=== PATIENT | male | born 1995 | race Hispanic/Latino ===

== ENCOUNTER 2017-12-30 12:20 | Emergency (ER) | payer BC, OTHER ==
[2017-12-30] MEDS ORDERED: Ketorolac Tromethamine 60 MG/2 ML VIAL ONE (13:28)
[2017-12-30] MEDS ORDERED: Dexamethasone 4 mg/ml Vial ONE (13:35)
== END 2017-12-30 13:43 | disposition home or self-care (01) ==
LOC: ERS 12:20
DX: S39.012A Strain of muscle, fascia and tendon of lower back, initial encounter (principal); X50.1XXA Overexertion from prolonged static or awkward postures, initial encounter
CPT/HCPCS: 96372; J1100; J1885

== ENCOUNTER 2018-03-29 09:40 | Emergency (ER) | payer OTHER ==
[2018-03-29] MEDS ORDERED: ISOVUE-370 76%-LOCM 1 ML ONE (10:05)
[2018-03-29 12:03] LABS: #Basophils 0.1 thou/uL (0.0-0.2); #Eosinphils 0.1 thou/uL (0.0-0.7); #Lymphocytes 1.5 thou/uL (1.20-3.40); #Monocytes 0.4 thou/uL (0.11-0.59); #Neutrophils 5.1 thou/uL (1.40-6.50); %Basophils 0.7 % (0.0-1.0); %Lymphocytes 20.3 % (21.0-51.0); %Monocytes 5.8 % (0.0-10.0); %Neutrophils 72.1 % (42.0-75.0); Hemoglobin 14.8 g/dL (14.0-18.0); Mean Corpuscular Hemoglobin 30.7 pg (27.0-31.0); Mean Corpuscular Volume 93.2 fL (78.0-98.0); Mean Platelet Volume 7.9 fL (7.4-10.4); Platelet Count 323 thou/uL (130-400); RBC Distribution Width 11.5 % (11.5-14.5); White Blood Cell (WBC) Count 7.1 thou/uL (4.8-10.8)
[2018-03-29 12:19] LABS: Anion Gap 11 mmol/L (10-20); BUN (Urea Nitrogen) 10 mg/dL (8.9-20.6); Calc. Creatinine Clearance 0 mL/min (70-130); Carbon Dioxide 28 mmol/L (22-29); Chloride 103 mmol/L (98-107); Estimated GFR-MDRD Greater than 90; Glucose 89 mg/dL (70-105); Potassium 3.6 mmol/L (3.5-5.1); Sodium 138 mmol/L (136-145)
[2018-03-29 12:29] LABS: Bilirubin Negative (Negative); Blood, Urine Negative (Negative); Clarity CLEAR (Clear); Glucose, Urine (Dipstick) Negative (Negative); Leukocyte Negative (Negative); Nitrite Negative (Negative); Protein, Urine (Dipstick) Negative (Neg-Trace); Specific Gravity, Urine 1.018 (1.002-1.036); Urobilinogen 0.2 mg/dL (0.2-1.0)
--- NOTE | 2018-03-29 12:58 | CT ---
CT ABDOMEN AND PELVIS WITH IV CONTRAST: INDICATIONS: Right inguinal hernia for three weeks with tenderness in the right inguinal region. History of tonsi llectomy and orthopedic surgery of the spine. COMPARISON: CT pelvis dated 03/01/2016. FINDINGS: The lung bases are clear. The liver, pancreas, adrenal glands, and kidneys appear within normal limits. The spleen is normal a ppearing. No pathologically enlarged lymph nodes are seen within the upper abdomen. No free fluid i s evident. There is a normal appendix in the right lower quadrant. There is a mild amount of retained stool wit hin the colon. The small bowel is normal in caliber. No free fluid or enlarged lymph nodes are seen within the pelvis. Within the right inguinal region, there is a 3.9 x 2.7 cm nodular mass with surrounding inflammatory stranding, suspicious for an enlarged lymph node. This is new from the comparison CT of the pelvis d ated 03/01/2016. No inguinal hernia is grossly evident. No overt femoral hernia is noted. There is some reticulation of the adjacent subcutaneous fat, near this enlarged lymph node. No acute osseous abnormality is evident. IMPRESSION: 1. Right inguinal lymphadenopathy with surrounding inflammatory change. Findings may be infectious or inflammatory in etiology. Entities such as lymphoma cannot be entirely excluded. Would recommend clinical and imaging followup. 2. No additional acute abnormalities seen. POS: [facility]
== END 2018-03-29 13:16 | disposition home or self-care (01) ==
LOC: ERS 09:40
DX: R59.0 Localized enlarged lymph nodes (principal)
CPT/HCPCS: 74177; 80048; 81003; 85025; Q9966